=== PATIENT | female | born 2000 | race Caucasian/White ===

== ENCOUNTER 2020-02-24 21:22 | Emergency (ER) | payer OTHER ==
[~2020-02-24] VITALS: Ht 167.6 cm; Wt 54.4 kg
[2020-02-24 21:34] VITALS: BP 115/72
--- NOTE | 2020-02-24 21:38 | NUR ---
PT CAME TO THE ED C/O RAPID HR AFTER TAKING ZOFRAN AND IBUPROFEN. PT WAS SEEN AT [facility] 02/22 DX:GASTROENTERITIS. PT AAOX4, VSS, RESPIRATIONS EVEN AND UNLABORED ON RA W/ NAD NOTED. PT CONNECTED TO THE DEPARTMENTAL BUYER AND POX
--- NOTE | 2020-02-24 22:21 | NUR ---
EVELYN GIRALDO AT BEDSIDE
--- NOTE | 2020-02-24 22:42 | NUR ---
Patient discharged to home in stable condition. Written and verbal after care instructions given. Patient verbalizes understanding of instruction.pt. ambulatory with a steady gait
== END 2020-02-24 22:43 | disposition home or self-care (01) ==
LOC: ER 21:27
DX: F41.9 Anxiety disorder, unspecified (principal); T45.0X5A Adverse effect of antiallergic and antiemetic drugs, initial encounter; T39.315A Adverse effect of propionic acid derivatives, initial encounter; K29.70 Gastritis, unspecified, without bleeding; Y92.89 Other specified places as the place of occurrence of the external cause
CPT/HCPCS: 82962-TC